=== PATIENT | male | born 2000 | race Caucasian/White ===

== ENCOUNTER 2022-09-30 11:33 | Emergency (ER) | payer OTHER, SELFPAY ==
[2022-09-30 11:46] VITALS: BP 126/57; PULSE 76; RESP 16; TEMP 36.9; O2SAT 100
--- NOTE | 2022-09-30 14:20 | ED.URI ---
HPI - URI/Sore Throat General Chief Complaint: Upper Respiratory Infection Stated Complaint: Congestion/Cough Time Seen by Provider: 09/30/22 14:00 Source: patient, RN notes reviewed and old records reviewed Mode of arrival: ambulatory Limitations: no limitations History of Present Illness HPI Narrative: 21-year-old male presents to [facility] with complaints congestion with cough started this morning, some headache discomfort and some right eye itching. Patient denies any fevers chills or sweats, no body aches reported. Patient states that girlfriend diagnosed with Influenza A yesterday. Patient has not had any COVID vaccinations or flu shot. No redness noted to right eye or any noted drainage. MD elicited complaint: cough and other (congestion) Onset (ago): hour(s) (this morning) Treatments prior to arrival: none Related Data Home Medications Medication Instructions Recorded Confirmed buspirone 5 mg tablet 5 mg PO DAILY 09/30/22 09/30/22 sumatriptan succinate 50 mg tablet See Rx Instructions .Route .COMPLEX 09/30/22 09/30/22 trazodone 50 mg tablet 50 mg PO DAILY 09/30/22 09/30/22 Allergies Allergy/AdvReac Type Severity Reaction Status Date / Time No Known Allergies Allergy Verified 09/30/22 12:08 Review of Systems Review of Systems: CONSTITUTIONAL: Denies malaise, chills, sweats, or fever. EYES: Denies visual changes, redness, or discharge.reports itching right eye ENT: Denies rhinorrhea, congestion, sinus pain, otalgia and sore throat. CARDIOVASCULAR: Denies chest pain, palpitations, or edema. RESPIRATORY: Reports cough.? Denies dyspnea. GASTROINTESTINAL: Denies abdominal pain, nausea, vomiting, diarrhea SKIN: Denies rash or itching. MUSCULOSKELETAL: Denies myalgia. NEUROLOGIC: Reports headache. All systems reviewed & are unremarkable except as noted in HPI and below PMFSH Past Medical History Medical History (Updated 10/05/22 @ 17:50 by Lulu Rubin NP) Anxiety COVID-19 reports x2 Hx of migraines Social History Social History (Updated 10/05/22 @ 17:40 by Lulu Rubin NP) Smoking status: Current every day smoker Tobacco type: e-cigarettes/vaping Alcohol intake: current Alcohol use details: social Substance use type: does not use Gender identity (if verbalized by the patient): Male Comments At time of signature, agree with nursing past medical, surgical, social and family history. There is no relevant family history pertinent to the presenting complaint Exam Narrative: GENERAL: Well-appearing, well-nourished, and in no acute distress. HEAD: Normocephalic EYES: PERRLA, conjunctivae clear, no drainage ENT: Nares clear, turbinates edematous and erythematous, clear discharge. Mucous membranes moist. TM pearly lane with dull light reflex bilaterally; no tragal tenderness. Oropharynx erythematous without lesions. Tonsils not enlarged and without exudate, no drooling, no hoarseness, no trismus, uvula midline. NECK: Supple. No lymphadenopathy CHEST: Clear to auscultation, breath sounds equal. No wheezing, rhonchi, rales, or stridor. No respiratory distress, speaks in full sentences.no cough noted HEART: Regular rate and rhythm. No murmur heard. SKIN: Warm, dry, no rash. NEURO: Alert and oriented x3. PSYCH: Normal mood and affect Course Course Emergency Course: Patient is aware of diagnosis, understands and agrees to treatment plan.? Anticipatory guidance given.? Patient agrees to follow-up as directed and is aware of reasons to seek care at the emergency department. Portions of this record may have been created with voice recognition software Level of Care: [facility] Visit Vital Signs Vital signs: Vital Signs Temperature 36.9 C 09/30/22 11:46 Pulse Rate 76 09/30/22 11:46 Respiratory Rate 16 09/30/22 11:46 Blood Pressure 126/57 L 09/30/22 11:46 Pulse Oximetry 100 09/30/22 11:46 Oxygen Delivery Room Air 09/30/22 11:46
== END 2022-09-30 14:50 | disposition home or self-care (01) ==
PROVIDERS: Emergency Provider Registered Nurse
DX: J06.9 Acute upper respiratory infection, unspecified (principal); F41.9 Anxiety disorder, unspecified; Z86.16 Personal history of COVID-19
CPT/HCPCS: 87804; 99212; G0463